=== PATIENT | male | born 1945 | race Caucasian/White ===

== ENCOUNTER 2018-01-21 05:48 | Inpatient (IN) | payer OTHER, MEDICARE ==
[2018-01-21] VITALS (13 sets, daily range): BP systolic 92–128; BP diastolic 52–72
[~2018-01-21] VITALS: Ht 172.7 cm; Wt 71.9 kg
--- NOTE | ~2018-01-21 | PR ---
[place], [place] PROGRESS NOTE NAME: MARLYN PAREDES [facility] #: [id number] UNIT #: [id number] ROOM: 401 DOCTOR: PAT MASSEY MDAMINATA BIRTHDATE: [birth year] DOS: 01/27/2018 PULMONARY FOLLOWUP NOTE SUBJECTIVE: The patient has been noted comfortable at this time. He was ordered thoracentesis on right side, which was not performed by the radiologist because the patient was given Lovenox. He was planned to have a thoracentesis done today, which was completed. He has not been noted any symptoms of chest pain. Shortness of breath has been improving. The cough has been noted minimal. There were no symptoms of chest pain. The patient has not been noted any symptoms of hemoptysis. There is no edema or pain of the lower extremities. The remaining systems reviewed and they were noted all negative. PHYSICAL EXAMINATION: VITAL SIGNS: Vital signs of the patient, which have been recorded showed normal temperature, respiratory rate of 18, heart rate is 70, and blood pressure 125/70. The pulse oxygen saturation as 98% on 2 liters nasal cannula. HEENT: Examination shows head was atraumatic. Eyes nonicterus. NECK: Supple. CARDIOVASCULAR: S1, S2 is audible. LUNGS: The patient noted improvement in air entry in the right lung. There were no crackles. ABDOMEN: Soft, nontender. Bowel sounds present. EXTREMITIES: Noted without any acute edema. VISIBLE SKIN: No lesions or rashes. MUSCULOSKELETAL SYMPTOMS: Without any acute deformities. CENTRAL NERVOUS SYSTEM: Intact. LABORATORY DATA: The review of the pleural fluid analysis that was done this morning, WBC are noted over 96 with 59% neutrophils, 15% lymphocytes, and 26% macrophages. The chemistry of the fluid noted with glucose 100, total protein 2.5, cholesterol less than 50, albumin 1.3, and LDH 148. The pH of the fluid noted 7.63. All the finding of the pleural fluid would be considered as a transudative effusion. The chest x-ray done post-thoracentesis was noted with significant improvement in the aeration of the lungs after removal of pleural fluid, which was noted at 450 mL. IMPRESSION: 1. The patient has transudative pleural fluid on the right side. At this time, exact etiology is not clear. It does not seem to be related to the pneumonia with significant improvement noted in the aeration after thoracentesis. 2. Resolving pulmonary infiltration of the lung as well secondary to acute pneumonia and past history of congestive heart failure, interstitial edema, or fluid overload. 3. Status post appendectomy. 4. Improving acute postoperative respiratory failure. PLAN OF MANAGEMENT: The ambulation will be encouraged. Continuation of bronchodilator, other therapy, and plan of management. Ordered home oxygen [place], [place] PROGRESS NOTE NAME: MARLYN PAREDES UNIT #: [id number] ROOM: [facility] DOCTOR: AMINATA MELENDEZ MD BIRTHDATE: [birth year] assessment in preparation for most likely discharge consideration for the morning. Other supportive therapy, plan of management, and care plan. Usual treatment, other therapy, plan of management, and care. AMINATA STEWART MD CM:PNTRANS [id number] AMINATA MASSEY MD 01/27/183 interface
--- NOTE | ~2018-01-21 | PR ---
[place], [place] PROGRESS NOTE NAME: MARLYN PAREDES [facility] #: [id number] UNIT #: [id number] ROOM: 401 DOCTOR: PAT MASSEY MD,AMINATA BIRTHDATE: [birth year] DOS: 01/26/2018 SUBJECTIVE: The patient has been noted comfortable at this time, has shown progressive improvement and reduction of respiratory symptom. Coughing has been improved significantly. The sputum expectoration noted in a small amount. There were no symptoms of hemoptysis. The patient has symptoms of fever or chills. There were no symptoms of abdominal pain, nausea, vomiting, diarrhea, hematemesis, or melena. General weakness and fatigue were noted. There were no symptoms of dizziness or headache. Remaining systems were reviewed. They were noted all negative. OBJECTIVE: VITAL SIGNS: For the patient, which have been recorded shows a temperature normal, respiratory rate 18, heart rate 87, blood pressure 161/89 this morning. Pulse oxygen saturation 3 liters nasal cannula 94% saturation. HEENT: Examination shows head was atraumatic. Eyes nonicterus. NECK: Supple. CARDIOVASCULAR: S1, S2 is audible. LUNGS: The patient was noted without any wheezing or crackles at this time. Decreased breath sounds of the right lower lung. ABDOMEN: Soft, nontender, bowel sounds present. EXTREMITIES: Without any acute edema. SKIN: No lesions or rashes. CENTRAL NERVOUS SYSTEM: No focal deficit. MUSCULOSKELETAL: Without any acute deformities. LABORATORY DATA: Chest x-ray of the patient that was done yesterday was noted with possibility of pleural fluid in the left side. Other possibility will be considered as subpulmonic pleural fluid as well. CBC of the patient done this morning shows WBC count normal, hemoglobin 11.1. BMP of the patient noted as normal BUN and creatinine. Chest x-ray of the patient was noted with reduction of the pulmonary infiltration progressed at this time. Elevation of the right hemidiaphragm whether related to atelectasis of left lower lobe remains to be seen at this time needs to be considered. Culture of the sputum noted E. coli. Acute pneumonia has been treated with current antibiotics. ASSESSMENT: 1. The patient with history of chronic obstructive pulmonary disease with long-term tobacco use. 2. Status post appendectomy on this admission as well. PLAN OF MANAGEMENT: Continue the antibiotics based on the current culture results. The patient is receiving doxycycline that should cover this organism effectively. Assessment of the patient by the Interventional Radiology for possibility of thoracentesis consideration if this proved to be done with ultrasound. Compression atelectasis would be another possibility for the patient with atelectasis of left lower lobe resulting in elevation of the right hemidiaphragm. Other plan of management of the patient to be continued for the patient as well. Titrate the oxygen supplementation to maintain a pulse oxygen saturation of 92% or greater. Currently, the patient is getting oxygen [place], [place] PROGRESS NOTE NAME: MARLYN PAREDES UNIT #: [id number] ROOM: [facility] DOCTOR: PAT MASSEY MD,AMINATA BIRTHDATE: [birth year] supplementation 3 liters nasal cannula with pulse ox of 94-95% saturation. AMNIATA STEWART MD CM:PNTRANS [phone] AMINATA MASSEY MD 04/10/18 0748 interface
--- NOTE | ~2018-01-21 | CON ---
[place], [place] REPORT OF CONSULTATION [id number] UNIT #: [id number] ROOM: [facility] DOCTOR: AMINATA MELENDEZ MD BIRTHDATE: [birth year] DOS: 01/22/2018 CONSULTATION REQUESTED BY: Hospitalist service. REASON FOR CONSULTATION: For the current assessment of the respiratory failure. HISTORY OF PRESENT ILLNESS: This is a 72-year-old white male out of state. 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 The pain was described to be stabbing, radiation to the umbilical area scale of 1-10 up to 10. The patient has nausea and dry heaves after that. He also felt symptoms of dizziness. He presented to the Emergency Room. As the pain got worse and noted more and more diffuse. He has been noted with bilious vomiting that occurred one time. There were symptoms of hematemesis and melena. He has been unknown with symptoms of ongoing cough for the past several days with excessive chest congestion and not expectorating any sputum. The patient denies any symptoms of hemoptysis. Denies symptoms of wheezing. He has been assessed in the Emergency Room, was diagnosed with finding of acute appendicitis and underwent appendectomy. The patient was admitted in the Intensive Care Unit, as he has been noted significant severe hypoxemia. Pulse oxygen saturation was noted at 60 degrees using 100% nonrebreather mask earlier. Later on, the patient's oxygen was changed to the Venturi mask this morning. He had been sitting on the chair, was noted with coughing intermittently with chest congestion noted without any sputum expectoration. REVIEW OF SYSTEMS: CONSTITUTIONAL: Fatigue and tiredness reported. Denies symptoms of fever or chills. EYES: Denies any burning, redness, or tenderness. EARS NOSE AND THROAT: Denies sore throat, hoarseness, otalgia, postnasal drainage or epistaxis. CARDIOVASCULAR: Denies angina pain, edema, or pain in lower extremity. GASTROINTESTINAL: Abdominal pain was still noted. Current post-surgery, but severe abdominal pain previous noted prior to surgery was resolved. There were no symptoms of nausea, vomiting or diarrhea reported. The patient does not have symptoms of hematemesis, melena, or dysphagia. GENITOURINARY: No dysuria, suprapubic pain, hematuria. MUSCULOSKELETAL: No acute joint pain, redness, or tenderness. SKIN: Denies abnormal lesions or rashes. CENTRAL NERVOUS SYSTEM: Denies dizziness, headache or diplopia. Syncopal episode this time was noted at the time of the pain, which has been resolved at this time. Remaining systems were reviewed. They were noted all negative. PAST MEDICAL HISTORY: 1. Known history of diverticulosis. 2. Gastroesophageal reflux. 3. Essential hypertension. [place], [place] REPORT OF CONSULTATION NAME: MARLYN PAREDES UNIT #: [id number] ROOM: [facility] DOCTOR: PAT MASSEY MD,AMINATA BIRTHDATE: [birth year] SOCIAL HISTORY: The patient is , has 8 children, lives in [place]. He has been noted history of tobacco use, started at younger age, a pack of cigarettes per day that was discontinued about 10 years ago and then started smoking cigarettes again 1 pack of cigarettes per day for the past 3 months. Denies history of illicit drug use or any alcohol dependence. FAMILY HISTORY: The patient's father of old age. The mother as well with complications of stroke. HOME MEDICATIONS: 1. Noted on admission use of Prilosec. 2. Valsartan with hydrochlorothiazide combination 325/12.5 mg p.o. daily. DRUG ALLERGIES: Noted for no known drug allergies. PHYSICAL EXAMINATION: GENERAL: A 72-year-old white male who has been noted currently awake and alert, sitting on the chair. A height 5 feet 8 inches, weight 258 pounds, BMI 24.1. VITAL SIGNS: Temperature 100.2 degrees Fahrenheit yesterday and this morning, temperature was noted at 8:00 as normal. Respiratory rate was ranging between 28-14. Heart rate of 62-69, blood pressure 119/68-111/63. Pulse oxygen saturation noted on Venturi mask as 92% saturation. Previous noted high flow oxygen nasal cannula, 88% saturation. HEENT: Shows head was atraumatic. Eyes nonicterus. Oral mucosa was dry. CARDIOVASCULAR: S1, S2 audible. LUNGS: Noted with decreased breath sounds was noted with rhonchorous breathing. There was no wheezing. There were no crackles heard. ABDOMEN: Status post surgery. Bowel sounds present. EXTREMITIES: Without any acute edema, clubbing or cyanosis. MUSCULOSKELETAL: Without any acute deformities. SKIN: No lesions or rashes. CENTRAL NERVOUS SYSTEM: Cranial nerves 2-12 intact. LABORATORY DATA: CBC that was done on admission on 01/21/2018, WBC count 15.6, hemoglobin, hematocrit and platelet count was normal. Lactic acid 1.9. PT/INR noted normal yesterday as well. CMP yesterday, glucose 162, BUN 30, creatinine 1.38, potassium 3.1. PT, PTT was normal. CMP was done this morning, glucose 122, BUN 50, creatinine 1.36, sodium 146. PT and PTT repeated again this morning was normal. CBC of this morning, WBC count 14,000, hemoglobin 11.9, hematocrit 38.4, platelet count 202,000. Chest x-ray that was done yesterday noted with patchy infiltration of the noted in the right mid lung. CT scan of the abdomen and pelvis that was completed yesterday, lower portion CT of the thorax noted with evidence of cystic lesions were noted in the lower portion of the lungs mostly medially and subpleural distribution with consideration of paraseptal emphysema. Lower portion of the CT thorax, which were taken. CT scan afternoon does not show any acute major pulmonary infiltration. Chest x-ray that was ordered and completed this morning for the ongoing hypoxemia was also reviewed. It shows evidence of pulmonary venous congestion was noted with more fluid overload with bilateral pleural fluid. The patient developed worsening of the chest x-ray compared the chest x-ray of yesterday and [place], [place] REPORT OF CONSULTATION NAME: MARLYN PAREDES [facility] UNIT #: [id number] ROOM: [facility] DOCTOR: PAT MASSEY MD,[facility] BIRTHDATE: [birth year] consolidation was still noted in the right lung. FINAL IMPRESSION: 1. The patient will be currently admitted to the hospital noted severe acute hypoxemic respiratory failure for the, multifactorial related to suspected acute pneumonia with community acquired infection to be considered as well as fluid overload were to congestive heart failure, combination of both with pleural fluid and congestive pulmonary venous congestion. 2. Elevation of creatinine with chronic kidney disease, acute kidney at this time was 3nknown. 2. Long-term nicotine dependence. The patient was also known with a suspicion of chronic obstructive pulmonary disease, but does not have any acute exacerbation. PLAN OF MANAGEMENT: The patient has been getting intravenous Zosyn, which could be covered with the anaerobes as well as gram-positive, gram-negative. In addition, the patient was started on doxycycline 100 mg p.o. b.i.d. to cover for any addition gram-positive organism including MRSA. The bronchodilator will be continued to help mobilize secretions. Sputum for Gram stain culture will be obtained. He will be given one dose of intravenous Lasix to improve the pulmonary venous congestion. Discontinue IV fluid temporarily. Close monitoring for the hemodynamics and the urinary output will be done. Continue to monitor the other lab closely. The arterial blood gas will be ordered to assess the ventilatory status and trial of the BiPAP if necessary will be ordered. Other additional treatment changes to be made based on the progression of the illness. Usual care, other supportive plan of management and care. Nicotine replacement patch to overcome the nicotine withdrawal. The patient was also ordered the Robitussin-DM 10 mL to help expectorate sputum. Use of incentive spirometry will be continued. Other additional treatment changes will be made based on the progression of the illness. Overall assessment and management were discussed with patient and family members at the bedside as well. Thanks for allowing me to participate in the care of this patient. AMINATA STEWART MD CM:CONSTR:REPORT OF CONSULTATION 1507 01/22/18 3119 interface
--- NOTE | ~2018-01-21 | PR ---
[place], [place] PROGRESS NOTE NAME[id number] UNIT #: [id number] ROOM: [facility] DOCTOR: AMINATA MELENDEZ MD BIRTHDATE: [birth year] DOS: 01/23/2018 SUBJECTIVE: The patient has been noted comfortable at this time. No oxygen requirement. The patient has been noted somewhat decreased from yesterday. The patient has used the BiPAP. The patient has ordered this morning, using oxygen supplementation, high flow nasal cannula. He had not been reported any symptoms of chest pain and expectoration of thick purulent sputum appeared to be ketan colored this morning for the patient as well. He does not have any symptoms of abdominal pain. Appetite for the patient's oral intake was noted sufficient. He denies symptoms of abdominal pain. Low grade fever for the patient was noted, as the patient [id number] degrees Fahrenheit yesterday afternoon. Later on 99.6 degree Fahrenheit this morning was noted afebrile. PAST MEDICAL, FAMILY, AND SOCIAL HISTORY: All reviewed, they were noted all negative. OBJECTIVE: VITAL SIGNS: ____ 99.6 degrees Fahrenheit, normal temperature, respiratory rate 16-18, heart 79-85, and blood pressure 116/73 to 115/68. HEENT: Examination shows head was atraumatic. Eyes nonicterus. NECK: Supple. CARDIOVASCULAR: S1, S2 audible. LUNGS: The patient was noted with moderate decreased breath sounds without any wheezing or crackles today. The breaths are noted mildly diminished bilaterally. ABDOMEN: Soft, nontender, bowel sounds present. EXTREMITIES: The patient was noted without any acute edema. MUSCULOSKELETAL: No acute deformities. SKIN: Visible skin, no lesions or rashes. CENTRAL NERVOUS SYSTEM: Cranial nerves 2-12 intact. No focal deficit. LABORATORY DATA: Labs on this patient, the BMP of patient this morning noted normal BUN and creatinine. Total protein is 6.2. Albumin is 2.6. CBC of the patient this morning, WBC count normal, hemoglobin 11.3, hematocrit of 36.1, and platelet count 185,000. Blood culture was noted without any bacterial growth. Echocardiogram was completed on the patient yesterday, which was assessed by Dr. Rory Cadena. The echocardiogram finding of the patient was reported as normal right ventricular function with trace mitral valve regurgitation. Left ventricle ejection fraction noted 65% normal with LVH. The blood gas on the BiPAP for the patient settings of 02/06, pH of 7.41, pCO2 of 35, pO2 of 79 with 40% oxygen. The chest x-ray one-view that was done shows improvement in the pleural fluid and the aeration of the lung noted after the Lasix administration, the area of consolidation is still noted in the right lung. IMPRESSION: 1. The patient who has been noted with current acute hypoxic respiratory failure related to current acute community-acquired pneumonia, suspected as streptococcal pneumonia with current ketan colored sputum. 2. The patient with chronic obstructive pulmonary disease, history of chronic nicotine dependence. [place], [place] PROGRESS NOTE NAME: MARLYN PAREDES UNIT #: [id number] ROOM: [facility] DOCTOR: PAT MASSEY MD,AMINATA BIRTHDATE: [birth year] 3. Fluid overload and congestive heart failure. The patient has been improved significantly with current chest x-ray and clinically as well. 4. Status post appendectomy as well. 5. Overall severe debility as well. PLAN OF MANAGEMENT: Continuation of the bronchodilators, oxygen supplementation and BiPAP use currently limited nighttime ____ during the day. Continuation of the oxygen supplementation to decrease oxygen supplementation to maintain pulse ox of 92% or greater. Obtain the prealbumin level as well in the morning. Other additional treatment changes to be made for the patient based on progression of illness. The assessment and management of the patient was discussed in detail for the patient's family members of the patient is in the Intensive Care Unit at the bedside. Questions asked for the patient were answered. AMINATA STEWART MD CM:PNTRANS [id number] AMINATA MASSEY MD 01/23/18 1404 interface
--- NOTE | ~2018-01-21 | PR ---
[place], [place] PROGRESS NOTE [id number] #: [id number] ROOM: 401 DOCTOR: PAT MASSEY MD,AMINATA BIRTHDATE: [birth year] DOS: 01/28/2018 PULMONARY PROGRESS NOTE SUBJECTIVE: The patient noted comfortable at this time, resting on the bed, and earlier noted ambulation. There were no symptoms of coughing, sputum expectoration, or chest pain. OBJECTIVE: VITAL SIGNS: Normal temperature, respiratory rate 18, heart rate 76, blood pressure 151/80. Pulse ox saturation on room air is 93% saturation. HEENT: Examination shows head was atraumatic. Eyes nonicterus. NECK: Supple. CARDIOVASCULAR: S1, S2 is audible. LUNGS: Noted without any wheezing or crackles. ABDOMEN: Soft, nontender. IMPRESSION: Resolution of the right pleural fluid after thoracentesis, acute pneumonia. Possible underlying interstitial lung disease can be completely excluded. PLAN OF THERAPY: Discontinuation of the antibiotics at this time. The patient could be considered for home discharge at this time. Usual care, other supportive plan of therapy and management plan of care. The patient had already been assessed for home oxygen needs but did not qualify for oxygen. AMINATA STEWART MD CM:PNTRANS [id number] AMINATA MASSEY MD 01/28/18 1447 interface
--- NOTE | ~2018-01-21 | PR ---
[place], [place] PROGRESS NOTE [id number] #: [id number] ROOM: [facility] DOCTOR: PAT MASSEY MD,AMINATA BIRTHDATE: [birth year] DOS: 01/24/2018 PULMONARY PROGRESS NOTE SUBJECTIVE: He has been comfortably resting in the bed, still noted with moderate amount of sputum expectoration, which has been noted, less sputum from yesterday. The oxygen requirement of the patient has been also noted partially decreased. He does not seem to in apparent respiratory distress. Denies symptoms of any chest pain or hemoptysis. The patient has used BiPAP for several hours last night; this morning, using the oxygen supplementation with the nasal cannula on 5 liters and pulse ox saturation recorded about 91-92%. The oxygen requirement of the patient on BiPAP was noted at 30%, decreased from 40%. He denies symptoms of abdominal pain. His appetite is noted good. Denies any pain or edema of the lower extremity. Denies symptoms of hemoptysis. Remaining systems were reviewed. They were noted all negative. OBJECTIVE: VITAL SIGNS: Showed normal temperature, respiratory rate of 18, heart rate 78, blood pressure 118/65. The pulse oxygen saturation of the patient on 5 liters nasal cannula was 91-92% saturation; on BiPAP at 30%, 97% saturation last night. HEENT: Head was atraumatic, eyes nonicterus. NECK: Supple. CARDIOVASCULAR: S1, S2 audible. LUNGS: The patient was noted without any crackles. Breaths are noted generally diminished bilaterally. ABDOMEN: Soft, nontender. EXTREMITIES: The patient is without acute edema. VISIBLE SKIN: No lesions or rashes. MUSCULOSKELETAL: Without any acute deformities. CENTRAL NERVOUS SYSTEM: Cranial nerves 2-12 intact. LABORATORY DATA: Today, CMP for the patient done this morning was noted potassium 3.4, albumin 2.4, otherwise normal CMP. Albumin noted as 9. CBC this morning for the patient was noted as WBC count 7.8, hemoglobin 11.2, hematocrit 35.1, platelet count 193,000. IMPRESSION: 1. The patient has been currently noted with severe acute hypoxic respiratory failure secondary to acute pneumonia and some fluid overload was also noted. 2. Status post appendectomy. 3. Chronic obstructive pulmonary disease. 4. History of heavy nicotine dependence previously. PLAN OF TREATMENT: The patient will be ordered physical therapy. The patient, at this time, could be transferred from the intensive care unit to outpatient. Continuation of antibiotics, bronchodilator therapy, and plan of management. The patient will be also started on Dulera. Repeat another chest x-ray for the patient to assess the progression of the pneumonia radiologically as well. Other therapy and plan changes for the patient is going to be made based on progression of the illness. [place], [place] PROGRESS NOTE NAME: MARLYN PAREDES UNIT #: [id number] ROOM: [facility] DOCTOR: AMINATA MELENDEZ MD BIRTHDATE: [birth year] AMINATA STEWART MD CM:PNTRANS [id number] AMINATA MASSEY MD 01/24/18 1027 interface
[2018-01-21 06:38] LABS: BASO % 0.3 % (0.0-1.0); EOS % 0.3 % (1.0-4.0); HEMATOCRIT 45.1 % (42.0-52.0); HEMOGLOBIN 14.5 g/dl (14.0-18.0); LYMPH # 1.6 10*3/uL (1.3-4.4); LYMPH % 10.1 % (27.0-41.0); MEAN CELL VOLUME 89.7 fl (80.0-94.0); MEAN CORPUSCULAR HGB 28.8 pg (27.0-31.0); MEAN CORPUSCULAR HGB CONC 32.2 g/dl (33.0-37.0); MEAN PLATELET VOLUME 9.9 fl (9.6-12.3); MONO # 0.7 10*3/uL (0.1-1.0); MONO % 4.5 % (3.0-9.0); NEUT # 13.2 10*3/uL (2.3-7.9); NEUT % 84.1 % (47.0-73.0); PLATELET COUNT AUTOMATED 317 10*3/uL (130-400); RED BLOOD COUNT 5.03 10*6/uL (4.50-5.90); RED CELL DISTRI WIDTH 15.1 % (0-14.5); WHITE BLOOD COUNT 15.6 10*3/uL (4.8-10.8)
[2018-01-21 06:54] LABS: ALBUMIN 3.3 gm/dl (3.1-4.5); BUN 13 mg/dl (7-24); CHLORIDE 103 mmol/L (98-107); CREATININE 1.38 mg/dL (0.70-1.30); LIPASE 154 U/L (73-393); POTASSIUM 3.1 mmol/L (3.5-5.1); SGOT/AST 11 IU/L (3-35); SGPT/ALT 13 U/L (12-78); SODIUM 142 mmol/L (136-145)
[2018-01-21 06:56] LABS: ALKALINE PHOSPHATASE 102 U/L (45-117); TOTAL PROTEIN 7.3 gm/dL (6.4-8.2)
[2018-01-21] MEDS ORDERED: VALSARTAN-HCTZ1 EAC4 PO (09:30)
[2018-01-21] MEDS ORDERED: PRILOSEC20 M1 PO (09:30)
[2018-01-21 18:39] LABS: BILIRUBIN 1+ (NEGATIVE); BLOOD 3+ (NEGATIVE); CLARITY CLOUDY (CLEAR); COLOR YELLOW (YELLOW); GLUCOSE NEGATIVE (NEGATIVE); KETONE TRACE (NEGATIVE); LEUKO ESTERASE NEGATIVE (NEGATIVE); NITRITE NEGATIVE (NEGATIVE); PH 5.5 (5.0-9.0); SPECIFIC GRAVITY 1.025 (1.005-1.030)
[2018-01-21 18:52] LABS: BACTERIA 3+
[2018-01-22] VITALS: BP 115/65
[2018-01-22 04:00] VITALS: BP 111/63
[2018-01-22 05:52] LABS: BUN 15 mg/dl (7-24); CHLORIDE 112 mmol/L (98-107); CHOLESTEROL 76 mg/dL (<200); CREATININE 1.36 mg/dL (0.70-1.30); PHOSPHOROUS 2.7 mg/dL (2.5-4.9); SGOT/AST 12 IU/L (3-35); SGPT/ALT 13 U/L (12-78); SODIUM 146 mmol/L (136-145); TOTAL PROTEIN 6.1 gm/dL (6.4-8.2); TRIGLYCERIDES 55 mg/dl (<150); VLDL CHOLESTEROL 11 mg/dL (6-40)
[2018-01-22 05:58] LABS: ALKALINE PHOSPHATASE 65 U/L (45-117); FREE T4 1.65 ng/dl (0.76-1.46); HDL CHOLESTEROL 36 mg/dl (40-60); LDL CHOLESTEROL 29 mg/dL (9-159)
[2018-01-22 06:02] LABS: POTASSIUM 4.3 mmol/L (3.5-5.1)
[2018-01-22 06:14] LABS: ACT PARTIAL THROMBO TIME 28.7 SECONDS (20.8-31.5); BASO % 0.1 % (0.0-1.0); INTERNATIONAL NORM RATIO 1.1 (2.0-3.5); LYMPH # 1.2 10*3/uL (1.3-4.4); LYMPH % 8.6 % (27.0-41.0); MEAN CELL VOLUME 92.5 fl (80.0-94.0); MEAN CORPUSCULAR HGB 28.7 pg (27.0-31.0); MEAN PLATELET VOLUME 10.7 fl (9.6-12.3); MONO # 0.6 10*3/uL (0.1-1.0); MONO % 4.5 % (3.0-9.0); NEUT # 12.1 10*3/uL (2.3-7.9); NEUT % 86.3 % (47.0-73.0); RED BLOOD COUNT 4.15 10*6/uL (4.50-5.90); RED CELL DISTRI WIDTH 15.6 % (0-14.5)
[2018-01-22 06:20] LABS: HEMATOCRIT 38.4 % (42.0-52.0); HEMOGLOBIN 11.9 g/dl (14.0-18.0); PLATELET COUNT AUTOMATED 202 10*3/uL (130-400)
[2018-01-22 08:00] VITALS: BP 121/76
[2018-01-22 12:00] VITALS: BP 144/81
[2018-01-22 15:38] LABS: ABG BASE EXCESS -2.6 mmol/L (-2.0-2.0); ABG O2 SATURATION 88.2 % (95-97); ARTERIAL BLOOD GAS PCO2 34.3 mmHg (35-45); ARTERIAL BLOOD GAS PH 7.404 (7.35-7.45); ARTERIAL BLOOD GAS PO2 52.6 mmHg (80-90)
[2018-01-22 16:00] VITALS: BP 108/57
[2018-01-22 18:43] LABS: ABG BASE EXCESS -1.4 mmol/L (-2.0-2.0); ABG HCO3 21.9 mmol/l (22-26); ARTERIAL BLOOD GAS PCO2 35.6 mmHg (35-45); ARTERIAL BLOOD GAS PH 7.41 (7.35-7.45); ARTERIAL BLOOD GAS PO2 79.6 mmHg (80-90)
[2018-01-22 20:00] VITALS: BP 115/68
[2018-01-23] VITALS: BP 109/64
[2018-01-23 04:00] VITALS: BP 100/73
[2018-01-23 05:57] LABS: BASO % 0.2 % (0.0-1.0); EOS % 0.2 % (1.0-4.0); HEMATOCRIT 36.1 % (42.0-52.0); HEMOGLOBIN 11.3 g/dl (14.0-18.0); LYMPH # 1.3 10*3/uL (1.3-4.4); MEAN CELL VOLUME 92.6 fl (80.0-94.0); MEAN CORPUSCULAR HGB CONC 31.3 g/dl (33.0-37.0); MEAN PLATELET VOLUME 10.4 fl (9.6-12.3); MONO # 0.5 10*3/uL (0.1-1.0); MONO % 5.7 % (3.0-9.0); NEUT # 7.5 10*3/uL (2.3-7.9); NEUT % 79.5 % (47.0-73.0); PLATELET COUNT AUTOMATED 185 10*3/uL (130-400); RED CELL DISTRI WIDTH 15.7 % (0-14.5); WHITE BLOOD COUNT 9.5 10*3/uL (4.8-10.8)
[2018-01-23 06:05] LABS: ALBUMIN 2.6 gm/dl (3.1-4.5); ALKALINE PHOSPHATASE 63 U/L (45-117); BUN 18 mg/dl (7-24); CHLORIDE 108 mmol/L (98-107); CREATININE 1.26 mg/dL (0.70-1.30); POTASSIUM 3.8 mmol/L (3.5-5.1); SGOT/AST 16 IU/L (3-35); SGPT/ALT 13 U/L (12-78); SODIUM 141 mmol/L (136-145); TOTAL PROTEIN 6.2 gm/dL (6.4-8.2)
[2018-01-23 08:00] VITALS: BP 116/73
[2018-01-23 12:00] VITALS: BP 116/69
[2018-01-23 16:00] VITALS: BP 132/72
[2018-01-23 20:00] VITALS: BP 121/62
[2018-01-24 00:03] VITALS: BP 130/77
[2018-01-24 04:00] VITALS: BP 128/71
[2018-01-24 05:22] LABS: ALBUMIN 2.4 gm/dl (3.1-4.5); ALKALINE PHOSPHATASE 70 U/L (45-117); BUN 15 mg/dl (7-24); CHLORIDE 105 mmol/L (98-107); CREATININE 1.18 mg/dL (0.70-1.30); PHOSPHOROUS 2.7 mg/dL (2.5-4.9); POTASSIUM 3.4 mmol/L (3.5-5.1); SGOT/AST 10 IU/L (3-35); SGPT/ALT 15 U/L (12-78); SODIUM 142 mmol/L (136-145); TOTAL PROTEIN 6.4 gm/dL (6.4-8.2)
[2018-01-24 05:24] LABS: PREALBUMIN 9 mg/dl (20-40)
[2018-01-24 05:54] LABS: BASO % 0.3 % (0.0-1.0); EOS # 0.1 10*3/uL (0.0-0.4); EOS % 0.8 % (1.0-4.0); HEMATOCRIT 35.1 % (42.0-52.0); HEMOGLOBIN 11.2 g/dl (14.0-18.0); LYMPH # 1.2 10*3/uL (1.3-4.4); LYMPH % 15.6 % (27.0-41.0); MEAN CELL VOLUME 90.5 fl (80.0-94.0); MEAN CORPUSCULAR HGB 28.9 pg (27.0-31.0); MEAN CORPUSCULAR HGB CONC 31.9 g/dl (33.0-37.0); MEAN PLATELET VOLUME 10.7 fl (9.6-12.3); MONO # 0.6 10*3/uL (0.1-1.0); MONO % 7.5 % (3.0-9.0); NEUT # 5.9 10*3/uL (2.3-7.9); NEUT % 75.3 % (47.0-73.0); PLATELET COUNT AUTOMATED 193 10*3/uL (130-400); RED BLOOD COUNT 3.88 10*6/uL (4.50-5.90); RED CELL DISTRI WIDTH 15.1 % (0-14.5); WHITE BLOOD COUNT 7.8 10*3/uL (4.8-10.8)
[2018-01-24 08:00] VITALS: BP 118/65
[2018-01-24 12:00] VITALS: BP 141/66
[2018-01-24 16:00] VITALS: BP 124/58
[2018-01-24 20:00] VITALS: BP 134/60
[2018-01-25 00:57] VITALS: BP 146/70
[2018-01-25 05:53] LABS: BASO % 0.1 % (0.0-1.0); EOS # 0.1 10*3/uL (0.0-0.4); EOS % 0.8 % (1.0-4.0); HEMATOCRIT 35.4 % (42.0-52.0); HEMOGLOBIN 11.6 g/dl (14.0-18.0); LYMPH # 0.9 10*3/uL (1.3-4.4); LYMPH % 11.8 % (27.0-41.0); MEAN CELL VOLUME 88.5 fl (80.0-94.0); MEAN CORPUSCULAR HGB CONC 32.8 g/dl (33.0-37.0); MEAN PLATELET VOLUME 10.2 fl (9.6-12.3); MONO # 0.5 10*3/uL (0.1-1.0); MONO % 7.2 % (3.0-9.0); NEUT % 79.6 % (47.0-73.0); PLATELET COUNT AUTOMATED 208 10*3/uL (130-400); RED CELL DISTRI WIDTH 14.6 % (0-14.5); WHITE BLOOD COUNT 7.6 10*3/uL (4.8-10.8)
[2018-01-25 06:14] LABS: BUN 10 mg/dl (7-24); CHLORIDE 104 mmol/L (98-107); CREATININE 1.04 mg/dL (0.70-1.30); POTASSIUM 3.2 mmol/L (3.5-5.1); SODIUM 139 mmol/L (136-145)
[2018-01-25 08:00] VITALS: BP 132/67
[2018-01-25 12:00] VITALS: BP 133/63
[2018-01-25 16:00] VITALS: BP 133/73
[2018-01-25 20:00] VITALS: BP 158/80
[2018-01-26] VITALS: BP 148/71
[2018-01-26 07:15] LABS: BASO % 0.3 % (0.0-1.0); EOS # 0.1 10*3/uL (0.0-0.4); EOS % 2.3 % (1.0-4.0); HEMATOCRIT 33.8 % (42.0-52.0); HEMOGLOBIN 11.1 g/dl (14.0-18.0); LYMPH # 1.3 10*3/uL (1.3-4.4); LYMPH % 20.3 % (27.0-41.0); MEAN CELL VOLUME 87.6 fl (80.0-94.0); MEAN CORPUSCULAR HGB 28.8 pg (27.0-31.0); MEAN CORPUSCULAR HGB CONC 32.8 g/dl (33.0-37.0); MEAN PLATELET VOLUME 10.3 fl (9.6-12.3); MONO # 0.6 10*3/uL (0.1-1.0); MONO % 9.9 % (3.0-9.0); NEUT # 4.1 10*3/uL (2.3-7.9); NEUT % 66.9 % (47.0-73.0); PLATELET COUNT AUTOMATED 234 10*3/uL (130-400); RED BLOOD COUNT 3.86 10*6/uL (4.50-5.90); RED CELL DISTRI WIDTH 14.8 % (0-14.5); WHITE BLOOD COUNT 6.2 10*3/uL (4.8-10.8)
[2018-01-26 07:38] LABS: BUN 9 mg/dl (7-24); CHLORIDE 107 mmol/L (98-107); CREATININE 0.98 mg/dL (0.70-1.30); POTASSIUM 3.5 mmol/L (3.5-5.1); SODIUM 142 mmol/L (136-145)
[2018-01-26 08:00] VITALS: BP 161/89
[2018-01-26 12:00] VITALS: BP 148/77
[2018-01-26 16:00] VITALS: BP 112/88
[2018-01-26 20:00] VITALS: BP 137/68; BP 146/64
[2018-01-26 23:45] VITALS: BP 138/77
[2018-01-27] VITALS (9 sets, daily range): BP systolic 123–148; BP diastolic 62–73
[2018-01-27 10:44] LABS: BODY FLUID WBC 96 /uL
[2018-01-27 11:13] LABS: BF LYMPHOCYTES 15 %; BF MACROPHAGES 26 %; BF NEUTROPHILS 59 %
[2018-01-28] VITALS: BP 126/69
[2018-01-28 08:00] VITALS: BP 151/80
[2018-01-28] MEDS ORDERED: DULE1ARO INH (09:35)
[2018-01-28] MEDS ORDERED: Vitamin D PO (09:35)
[2018-01-28] MEDS ORDERED: DOXYCYCLINE MO100 M1 PO (09:35)
== END 2018-01-28 10:39 | disposition home or self-care (01) | DRG 853 ==
LOC: ED 05:48 → EDHOLD 07:36 → ICCU 07:36 → 4E 07:36 → ICCU 08:10 → 4E 01-24 11:56
PROVIDERS: Emergency Medicine; Emergency Medicine Emergency Medical Services; Internal Medicine; Internal Medicine Critical Care Medicine
PROC: 0DTJ4ZZ Resection of Appendix, Percutaneous Endoscopic Approach (ICD-10-PCS; principal; 2018-01-22)
PROC: 5A09357 Assistance with Respiratory Ventilation, Less than 24 Consecutive Hours, Continuous Positive Airway Pressure (ICD-10-PCS; 2018-01-22)
PROC: 5A09357 Assistance with Respiratory Ventilation, Less than 24 Consecutive Hours, Continuous Positive Airway Pressure (ICD-10-PCS; 2018-01-24)
PROC: 0W993ZZ Drainage of Right Pleural Cavity, Percutaneous Approach (ICD-10-PCS; 2018-01-27)
DX: A41.9 Sepsis, unspecified organism (principal); K63.1 Perforation of intestine (nontraumatic); J96.00 Acute respiratory failure, unspecified whether with hypoxia or hypercapnia; J18.9 Pneumonia, unspecified organism; J90 Pleural effusion, not elsewhere classified; I95.9 Hypotension, unspecified; K35.2 Acute appendicitis with generalized peritonitis; N18.3 Chronic kidney disease, stage 3 (moderate); I13.0 Hypertensive heart and chronic kidney disease with heart failure and stage 1 through stage 4 chronic kidney disease, or unspecified chronic kidney disease; J44.0 Chronic obstructive pulmonary disease with (acute) lower respiratory infection; K66.8 Other specified disorders of peritoneum; K57.90 Diverticulosis of intestine, part unspecified, without perforation or abscess without bleeding; K21.9 Gastro-esophageal reflux disease without esophagitis; K59.00 Constipation, unspecified; R65.20 Severe sepsis without septic shock; E87.6 Hypokalemia; R73.9 Hyperglycemia, unspecified; F17.210 Nicotine dependence, cigarettes, uncomplicated; I50.9 Heart failure, unspecified; E53.8 Deficiency of other specified B group vitamins; E78.5 Hyperlipidemia, unspecified; Z82.3 Family history of stroke; Z79.899 Other long term (current) drug therapy; Z71.6 Tobacco abuse counseling